=== PATIENT | male | born 1935 | race Caucasian/White ===

== ENCOUNTER 2018-12-03 13:50 | Emergency (ER) | payer OTHER ==
[~2018-12-03] VITALS: Ht 175.3 cm; Wt 81.7 kg
[~2018-12-03 13:50] MED LIST: CLOP75 PO; COLE5P PO; FAMO40 PO; Felodipine ER5 MG PO; GLIP2.5ER PO; GLIP5 PO; LISI5 PO; Lisinopril2.5 MG; METF500 PO; METF500C PO; METFORMIN; METO25 PO; METO25ER PO; NAPR550 PO; NITR.6SL SL; OMEP20ER PO; OXYACE5T PO; OXYB5 PO; PREVASTATIN; ROSU5 PO; TAMS.4ER PO; [UNRECOGNIZED DRUG - OTHER]
[2018-12-03] MEDS ORDERED: ASCO500 PO (15:35)
[2018-12-03] MEDS ORDERED: FINA5 PO (15:40)
[2018-12-03] MEDS ORDERED: SERT25 PO (15:41)
[2018-12-03] MEDS ORDERED: ASPI81CH PO (15:42)
[2018-12-03] MEDS ORDERED: Vitamin D400 UNI2 PO (15:42)
[2018-12-03] MEDS ORDERED: Hair, Skin & N1 EACH PO (15:42)
[2018-12-03] MEDS ORDERED: Coq-10100 MG PO (15:43)
== END 2018-12-03 16:46 ==
LOC: ER 13:50
DX: M51.36 Other intervertebral disc degeneration, lumbar region (principal); M43.9 Deforming dorsopathy, unspecified; G89.29 Other chronic pain; I10 Essential (primary) hypertension; E11.9 Type 2 diabetes mellitus without complications; Z79.899 Other long term (current) drug therapy; Z79.82 Long term (current) use of aspirin; Z79.01 Long term (current) use of anticoagulants; Z79.84 Long term (current) use of oral hypoglycemic drugs; Z86.73 Personal history of transient ischemic attack (TIA), and cerebral infarction without residual deficits; W19.XXXA Unspecified fall, initial encounter
CPT/HCPCS: 72100; 99283-25

== ENCOUNTER 2018-12-06 11:12 | Emergency (ER) | payer OTHER ==
[~2018-12-06] VITALS: Ht 175.3 cm; Wt 81.7 kg
[~2018-12-06 11:12] MED LIST changes: +ASCO500 PO; +ASPI81CH PO; +Coq-10100 MG PO; +FINA5 PO; +Hair, Skin & N1 EACH PO; +SERT25 PO; +Vitamin D400 UNI2 PO
== END 2018-12-06 15:11 | disposition home or self-care (01) ==
LOC: ER 11:12
DX: S32.029A Unspecified fracture of second lumbar vertebra, initial encounter for closed fracture (principal); I10 Essential (primary) hypertension; E11.9 Type 2 diabetes mellitus without complications; Z91.018 Allergy to other foods; Z88.8 Allergy status to other drugs, medicaments and biological substances; Z79.899 Other long term (current) drug therapy; Z79.01 Long term (current) use of anticoagulants; Z79.84 Long term (current) use of oral hypoglycemic drugs; Z79.82 Long term (current) use of aspirin; Z86.73 Personal history of transient ischemic attack (TIA), and cerebral infarction without residual deficits; W19.XXXA Unspecified fall, initial encounter
CPT/HCPCS: 99284

== ENCOUNTER 2019-10-06 07:07 | Emergency (ER) | payer OTHER ==
[~2019-10-06] VITALS: Ht 177.8 cm; Wt 79.4 kg
[2019-10-06 08:00] LABS: BASOPHILS ABSOLUTE AUTO 0.05 K/mm3 (0.00-0.23); BASOPHILS PERCENT AUTO 1 % (0-2); EOSINOPHILS ABSOLUTE AUTO 0.23 K/mm3 (0.00-0.68); EOSINOPHILS PERCENT AUTO 3 % (0-6); Hematocrit 36.5 % (37.0-53.0); Hemoglobin 11.8 g/dL (13.5-17.5); IMMATURE GRAN ABSOLUTE AUTO 0.03 K/mm3 (0.00-0.10); IMMATURE GRAN PERCENT AUTO 0 % (0-1); LYMPHOCYTES ABSOLUTE AUTO 2.29 K/mm3 (0.84-5.20); LYMPHOCYTES PERCENT AUTO 25 % (21-46); MONOCYTES ABSOLUTE AUTO 0.88 K/mm3 (0.16-1.47); MONOCYTES PERCENT AUTO 10 % (4-13); Mean Corpuscular HGB 28.6 pg (26.0-34.0); Mean Corpuscular HGB Conc 32.3 g/dL (31.5-36.5); Mean Corpuscular Volume 88 fL (80-100); Mean Platelet Volume 9.3 fL (9.1-12.4); NEUTROPHILS ABSOLUTE AUTO 5.58 K/mm3 (1.96-9.15); NEUTROPHILS PERCENT AUTO 62 % (41-73); Platelet Count 253 K/mm3 (150-400); RDW Coefficient Variation 14.2 % (11.7-14.2); RDW Standard Deviation 45.7 fL (35.1-46.3); Red Blood Cell Count 4.13 M/mm3 (4.30-5.90); White Blood Cell Count 9.06 K/mm3 (4.00-11.30)
[2019-10-06 08:19] LABS: Albumin, Blood 3.2 g/dL (3.4-5.0); Albumin/Globulin Ratio 0.8 (0.8-1.8); Bilirubin, Total 0.6 mg/dL (0.1-1.0); Creatinine, Blood 1.35 mg/dL (0.60-1.20); Globulin, Blood 4.2 g/dL (2.2-4.0); Potassium, Blood 4.1 mmol/L (3.5-5.5); Total Protein, Blood 7.4 g/dL (6.4-8.2)
== END 2019-10-06 09:05 | disposition home or self-care (01) ==
LOC: ER 07:07
PROVIDERS: Emergency Medicine
DX: M25.511 Pain in right shoulder (principal); R29.6 Repeated falls; E11.22 Type 2 diabetes mellitus with diabetic chronic kidney disease; I12.9 Hypertensive chronic kidney disease with stage 1 through stage 4 chronic kidney disease, or unspecified chronic kidney disease; N18.9 Chronic kidney disease, unspecified; W06.XXXA Fall from bed, initial encounter
CPT/HCPCS: 36415; 80053; 85025; 93005; 93010; 99284-25

== ENCOUNTER 2020-01-14 02:46 | Emergency (ER) | payer OTHER ==
[~2020-01-14] VITALS: Ht 175.3 cm; Wt 83.9 kg
[2020-01-14 05:02] LABS: Source, Urine Clean Catch
[2020-01-14 05:05] LABS: Bilirubin, Urine Neg (Neg); Blood, Urine 3+ (Neg); Glucose Qualitative, Urine Neg (Neg); Ketones, Urine Neg (Neg); Leukocyte Esterase, Urine 3+ (Neg); Nitrite, Urine Neg (Neg); Protein, Urine 2+ (Neg); Urobilinogen, Urine NORM (Normal)
[2020-01-14 05:21] LABS: Appearance, Urine Clear (Clear); Color, Urine Yellow (P-Yellow)
[2020-01-14 05:28] LABS: White Blood Cells, Urine TNTC /hpf (0-5)
[2020-01-14 05:29] LABS: Bacteria Many /hpf; Red Blood Cells, Urine 50-100 /hpf (0-2); Squamous Epithelial Cells Not Seen /hpf (Few)
[2020-01-14] MEDS ORDERED: Keflex500 MG PO (05:58)
== END 2020-01-14 08:10 | disposition home or self-care (01) ==
LOC: ER 02:46
PROVIDERS: Emergency Medicine
DX: N39.0 Urinary tract infection, site not specified (principal); Z88.8 Allergy status to other drugs, medicaments and biological substances; Z91.030 Bee allergy status; Z79.899 Other long term (current) drug therapy; Z79.84 Long term (current) use of oral hypoglycemic drugs; Z79.82 Long term (current) use of aspirin; I12.9 Hypertensive chronic kidney disease with stage 1 through stage 4 chronic kidney disease, or unspecified chronic kidney disease; N18.9 Chronic kidney disease, unspecified; E78.5 Hyperlipidemia, unspecified; E11.22 Type 2 diabetes mellitus with diabetic chronic kidney disease; Z86.73 Personal history of transient ischemic attack (TIA), and cerebral infarction without residual deficits
CPT/HCPCS: 51798; 81001; 87077; 87086; 87186; 99283-25; A9270-GY

== ENCOUNTER → 2020-05-04 | Outpatient (CLI) | payer OTHER ==
[~2020-05-04] MED LIST changes: +Keflex500 MG PO
[2020-05-04 10:41] LABS: Bilirubin, Urine Neg (Neg); Blood, Urine Neg (Neg); Glucose Qualitative, Urine Neg (Neg); Ketones, Urine Neg (Neg); Leukocyte Esterase, Urine 3+ (Neg); Nitrite, Urine Neg (Neg); Protein, Urine Neg (Neg); Urobilinogen, Urine NORM (Normal)
[2020-05-04 10:50] LABS: Appearance, Urine Hazy (Clear); Color, Urine Pale Yellow (P-Yellow)
[2020-05-04 10:51] LABS: White Blood Cells, Urine 25-50 /hpf (0-5)
[2020-05-04 10:52] LABS: Bacteria Many /hpf; Red Blood Cells, Urine 0-2 /hpf (0-2); Squamous Epithelial Cells Rare /hpf (Few); Triple Phosphate Crystals Mod /hpf
[2020-05-04 10:53] LABS: Amorphous Light (0-Heavy)
== END | disposition home or self-care (01) ==
LOC: LAB 08:45 → LAB SHORT 08:45 → LAB FUT 05-03 14:10
PROVIDERS: Urology
DX: R39.14 Feeling of incomplete bladder emptying (principal)
CPT/HCPCS: 81001; 87077; 87086; 87186

== ENCOUNTER 2020-07-23 14:34 | Emergency (ER) | payer OTHER ==
[~2020-07-23] VITALS: Ht 175.3 cm; Wt 83.9 kg
[~2020-07-23 14:34] MED LIST changes: +CEFP200 PO
[2020-07-23 14:55] LABS: Source, Urine Clean Catch
[2020-07-23 15:26] LABS: Bilirubin, Urine Neg (Neg); Blood, Urine 5+ (Neg); Glucose Qualitative, Urine Neg (Neg); Ketones, Urine 1+ (Neg); Leukocyte Esterase, Urine 3+ (Neg); Nitrite, Urine Pos (Neg); Protein, Urine 4+ (Neg); Urobilinogen, Urine NORM (Normal)
[2020-07-23 15:39] LABS: Color, Urine Yellow (P-Yellow)
[2020-07-23 15:40] LABS: Appearance, Urine Cloudy (Clear); Bacteria Many /hpf; Red Blood Cells, Urine TNTC /hpf (0-2); Squamous Epithelial Cells Rare /hpf (Few); White Blood Cells, Urine TNTC /hpf (0-5)
[2020-07-23] MEDS ORDERED: CEPH500 PO (16:00)
[2020-07-23] MEDS ORDERED: Magnesium Citr296 ML PO (16:00)
== END 2020-07-23 16:35 | disposition home or self-care (01) ==
LOC: ER 14:34
PROVIDERS: Emergency Medicine
DX: K60.2 Anal fissure, unspecified (principal); N39.0 Urinary tract infection, site not specified; I12.9 Hypertensive chronic kidney disease with stage 1 through stage 4 chronic kidney disease, or unspecified chronic kidney disease; N18.9 Chronic kidney disease, unspecified; E11.22 Type 2 diabetes mellitus with diabetic chronic kidney disease; E78.5 Hyperlipidemia, unspecified; I25.810 Atherosclerosis of coronary artery bypass graft(s) without angina pectoris; Z91.013 Allergy to seafood; Z88.8 Allergy status to other drugs, medicaments and biological substances; Z79.02 Long term (current) use of antithrombotics/antiplatelets; Z79.84 Long term (current) use of oral hypoglycemic drugs; Z79.82 Long term (current) use of aspirin; Z79.899 Other long term (current) drug therapy; Z86.73 Personal history of transient ischemic attack (TIA), and cerebral infarction without residual deficits; Z95.1 Presence of aortocoronary bypass graft
CPT/HCPCS: 81001; 87077; 87086; 87186; 99283

== ENCOUNTER 2021-07-28 15:29 | Emergency (ER) | payer OTHER ==
[~2021-07-28] VITALS: Ht 175.3 cm; Wt 83.9 kg
[~2021-07-28 15:29] MED LIST changes: +CEPH500 PO; +Magnesium Citr296 ML PO
[2021-07-28 16:07] LABS: BASOPHILS ABSOLUTE AUTO 0.08 K/mm3 (0.00-0.23); BASOPHILS PERCENT AUTO 1 % (0-2); EOSINOPHILS ABSOLUTE AUTO 0.17 K/mm3 (0.00-0.68); EOSINOPHILS PERCENT AUTO 2 % (0-6); Hematocrit 36.9 % (37.0-53.0); Hemoglobin 11.9 g/dL (13.5-17.5); IMMATURE GRAN ABSOLUTE AUTO 0.02 K/mm3 (0.00-0.10); IMMATURE GRAN PERCENT AUTO 0 % (0-1); LYMPHOCYTES ABSOLUTE AUTO 1.93 K/mm3 (0.84-5.20); LYMPHOCYTES PERCENT AUTO 21 % (21-46); MONOCYTES ABSOLUTE AUTO 0.76 K/mm3 (0.16-1.47); MONOCYTES PERCENT AUTO 8 % (4-13); Mean Corpuscular HGB 29.2 pg (26.0-34.0); Mean Corpuscular HGB Conc 32.2 g/dL (31.5-36.5); Mean Corpuscular Volume 91 fL (80-100); Mean Platelet Volume 9.5 fL (9.1-12.4); NEUTROPHILS ABSOLUTE AUTO 6.11 K/mm3 (1.96-9.15); NEUTROPHILS PERCENT AUTO 67 % (41-73); NRBC ABSOLUTE 0.02 K/mm3 (0.00-0.02); NRBC Auto 0.2 /100 WBC (0.0-0.2); Platelet Count 255 K/mm3 (150-400); RDW Coefficient Variation 14.5 % (11.7-14.2); RDW Standard Deviation 48.6 fL (35.1-46.3); Red Blood Cell Count 4.07 M/mm3 (4.30-5.90); White Blood Cell Count 9.07 K/mm3 (4.00-11.30)
[2021-07-28 16:27] LABS: Albumin, Blood 3.4 g/dL (3.4-5.0); Albumin/Globulin Ratio 0.8 (0.8-1.8); Bilirubin, Total 0.5 mg/dL (0.1-1.0); Bun/Creatinine Ratio 20.9 (12.0-20.0); Calcium, Blood 9.1 mg/dL (8.5-10.1); Creatinine, Blood 1.39 mg/dL (0.60-1.20); Globulin, Blood 4.3 g/dL (2.2-4.0); Potassium, Blood 4.9 mmol/L (3.5-5.5); Total Protein, Blood 7.7 g/dL (6.4-8.2)
[2021-07-28] MEDS ORDERED: GLYCERIN1 EAC3 PR (20:33)
== END 2021-07-28 20:57 | disposition home or self-care (01) ==
LOC: ER 15:29
PROVIDERS: Physician Assistant
DX: K59.00 Constipation, unspecified (principal); Z91.013 Allergy to seafood; Z88.8 Allergy status to other drugs, medicaments and biological substances; Z79.899 Other long term (current) drug therapy; Z79.82 Long term (current) use of aspirin; Z79.84 Long term (current) use of oral hypoglycemic drugs; I12.9 Hypertensive chronic kidney disease with stage 1 through stage 4 chronic kidney disease, or unspecified chronic kidney disease; E11.22 Type 2 diabetes mellitus with diabetic chronic kidney disease; N18.9 Chronic kidney disease, unspecified; E78.5 Hyperlipidemia, unspecified; I25.10 Atherosclerotic heart disease of native coronary artery without angina pectoris; Z86.73 Personal history of transient ischemic attack (TIA), and cerebral infarction without residual deficits
CPT/HCPCS: 36415; 74176; 80053; 85025; 99284-25; A9270

== ENCOUNTER 2021-11-04 12:11 | Emergency (ER) | payer OTHER ==
[~2021-11-04] VITALS: Ht 175.3 cm; Wt 83.9 kg
[~2021-11-04 12:11] MED LIST changes: +ACET325; +GLYCERIN1 EAC3 PR
[2021-11-04] MEDS ORDERED: MAGCIT300 PO (15:54)
== END 2021-11-04 16:44 | disposition home or self-care (01) ==
LOC: ER 12:11
DX: K59.00 Constipation, unspecified (principal); Z88.8 Allergy status to other drugs, medicaments and biological substances; Z91.013 Allergy to seafood; Z79.899 Other long term (current) drug therapy; Z79.84 Long term (current) use of oral hypoglycemic drugs; I10 Essential (primary) hypertension; E11.9 Type 2 diabetes mellitus without complications; Z87.891 Personal history of nicotine dependence
CPT/HCPCS: 74018; 99283-25; A9270

== ENCOUNTER 2022-03-18 23:45 | Inpatient (IN) | payer OTHER ==
[~2022-03-18] VITALS: Ht 175.3 cm; Wt 82.5 kg
[~2022-03-18 23:45] MED LIST changes: -ACET325; +ACET325 PO; -Lisinopril2.5 MG; +Lisinopril2.5 MG PO; +MAGCIT300 PO
[2022-03-18 23:56] LABS: Source, Urine Foley catheter
[2022-03-19 00:03] LABS: Bilirubin, Urine Neg (Neg); Blood, Urine 4+ (Neg); Glucose Qualitative, Urine Neg (Neg); Ketones, Urine Neg (Neg); Leukocyte Esterase, Urine 3+ (Neg); Nitrite, Urine Pos (Neg); Protein, Urine 2+ (Neg); Urobilinogen, Urine NORM (Normal)
[2022-03-19 00:22] LABS: Appearance, Urine Cloudy (Clear); Bacteria Many /hpf; Color, Urine Yellow (P-Yellow); Squamous Epithelial Cells Rare /hpf (Few); White Blood Cells, Urine 50-100 /hpf (0-5)
[2022-03-19 00:26] LABS: BASOPHILS ABSOLUTE AUTO 0.06 K/mm3 (0.00-0.23); BASOPHILS PERCENT AUTO 1 % (0-2); EOSINOPHILS ABSOLUTE AUTO 0.32 K/mm3 (0.00-0.68); EOSINOPHILS PERCENT AUTO 3 % (0-6); Hematocrit 33.9 % (37.0-53.0); Hemoglobin 10.9 g/dL (13.5-17.5); IMMATURE GRAN ABSOLUTE AUTO 0.03 K/mm3 (0.00-0.10); IMMATURE GRAN PERCENT AUTO 0 % (0-1); LYMPHOCYTES ABSOLUTE AUTO 1.85 K/mm3 (0.84-5.20); LYMPHOCYTES PERCENT AUTO 15 % (21-46); MONOCYTES ABSOLUTE AUTO 1.17 K/mm3 (0.16-1.47); MONOCYTES PERCENT AUTO 9 % (4-13); Mean Corpuscular HGB 28.8 pg (26.0-34.0); Mean Corpuscular HGB Conc 32.2 g/dL (31.5-36.5); Mean Corpuscular Volume 89 fL (80-100); Mean Platelet Volume 9.2 fL (9.1-12.4); NEUTROPHILS ABSOLUTE AUTO 9.03 K/mm3 (1.96-9.15); NEUTROPHILS PERCENT AUTO 73 % (41-73); Platelet Count 192 K/mm3 (150-400); RDW Coefficient Variation 16.3 % (11.7-14.2); RDW Standard Deviation 54.1 fL (35.1-46.3); Red Blood Cell Count 3.79 M/mm3 (4.30-5.90); White Blood Cell Count 12.46 K/mm3 (4.00-11.30)
[2022-03-19 06:57] LABS: Albumin/Globulin Ratio 0.8 (0.8-1.8); Bilirubin, Total 0.4 mg/dL (0.1-1.0); Bun/Creatinine Ratio 28.7 (12.0-20.0); Calcium, Blood 8.8 mg/dL (8.5-10.1); Creatinine, Blood 1.43 mg/dL (0.60-1.20); Globulin, Blood 3.9 g/dL (2.2-4.0); Potassium, Blood 4.4 mmol/L (3.5-5.5); Total Protein, Blood 6.9 g/dL (6.4-8.2)
[2022-03-19 08:40] LABS: BASOPHILS ABSOLUTE AUTO 0.06 K/mm3 (0.00-0.23); BASOPHILS PERCENT AUTO 1 % (0-2); EOSINOPHILS ABSOLUTE AUTO 0.32 K/mm3 (0.00-0.68); EOSINOPHILS PERCENT AUTO 3 % (0-6); Hematocrit 33.5 % (37.0-53.0); Hemoglobin 10.6 g/dL (13.5-17.5); IMMATURE GRAN ABSOLUTE AUTO 0.04 K/mm3 (0.00-0.10); IMMATURE GRAN PERCENT AUTO 0 % (0-1); LYMPHOCYTES ABSOLUTE AUTO 2.05 K/mm3 (0.84-5.20); LYMPHOCYTES PERCENT AUTO 18 % (21-46); MONOCYTES PERCENT AUTO 11 % (4-13); Mean Corpuscular HGB 28.8 pg (26.0-34.0); Mean Corpuscular HGB Conc 31.6 g/dL (31.5-36.5); Mean Corpuscular Volume 91 fL (80-100); Mean Platelet Volume 9.1 fL (9.1-12.4); NEUTROPHILS ABSOLUTE AUTO 7.78 K/mm3 (1.96-9.15); NEUTROPHILS PERCENT AUTO 67 % (41-73); Platelet Count 185 K/mm3 (150-400); RDW Coefficient Variation 16.3 % (11.7-14.2); RDW Standard Deviation 54.9 fL (35.1-46.3); Red Blood Cell Count 3.68 M/mm3 (4.30-5.90); White Blood Cell Count 11.55 K/mm3 (4.00-11.30)
[2022-03-19 09:05] LABS: Albumin, Blood 2.7 g/dL (3.4-5.0); Albumin/Globulin Ratio 0.7 (0.8-1.8); Bilirubin, Total 0.3 mg/dL (0.1-1.0); Bun/Creatinine Ratio 27.1 (12.0-20.0); Calcium, Blood 8.1 mg/dL (8.5-10.1); Creatinine, Blood 1.29 mg/dL (0.60-1.20); Potassium, Blood 4.4 mmol/L (3.5-5.5); Total Protein, Blood 6.7 g/dL (6.4-8.2)
[2022-03-19] MEDS ORDERED: SERT100 PO (10:44)
[2022-03-19] MEDS ORDERED: METO50ER PO (10:44)
[2022-03-19] MEDS ORDERED: ROSU10TA PO (10:45)
[2022-03-19] MEDS ORDERED: SENN187 PO ×2 (10:45→23:03)
[2022-03-19] MEDS ORDERED: DOCU100 PO (10:46)
[2022-03-19] MEDS ORDERED: ALENDRONATE SOD35 M6 PO (10:47)
--- NOTE | 2022-03-19 18:34 | NUR ---
SHIFT SUMMARY PT A/O X2-3. PT SEEMS TO HAVE GOTTEN INCREASINGLY CONFUSED T/O THE SHIFT. PT UNSURE OF WHERE HE IS BUT PLEASANT AND COOPERATIVE WITH CARE. 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 HE REPORTS PAIN IN HIS R SIDE AT BASELINE. MEDICATION LIST OBTAINED FROM CAREGIVER AND UPDATED. VSS. WILL REPORT TO NESS RN.
[2022-03-19] MEDS ORDERED: ALPR.25 PO (22:49)
[2022-03-19] MEDS ORDERED: CALCIUM CARBON650 MG PO (22:49)
[2022-03-19] MEDS ORDERED: CARBLEV25 SL (22:50)
[2022-03-19] MEDS ORDERED: CLIN1TS TOP (22:51)
[2022-03-19] MEDS ORDERED: CLOBETASOL EMOL15 G1 TOP (22:52)
[2022-03-19] MEDS ORDERED: VOLTAREN ARTHRI20 GM TOP (22:53)
[2022-03-19] MEDS ORDERED: FAMO20 PO (22:54)
[2022-03-19] MEDS ORDERED: GUAI600T33 PO (22:57)
[2022-03-19] MEDS ORDERED: DULCOLAX400 MG/5 M PO (22:59)
[2022-03-19] MEDS ORDERED: NYAMYC15 G1 TOP (23:00)
[2022-03-19] MEDS ORDERED: MIRALAX17 GM PO (23:01)
[2022-03-19] MEDS ORDERED: SODIUM CHLORIDE10 M1 IR (23:05)
[2022-03-19] MEDS ORDERED: SOLI5 PO (23:06)
[2022-03-19] MEDS ORDERED: THERA-GESIC TOP (23:07)
[2022-03-19] MEDS ORDERED: [UNRECOGNIZED DRUG - OTHER] PO (23:08)
[2022-03-19] MEDS ORDERED: ZINC OXIDE57 GM TOP (23:09)
--- NOTE | 2022-03-20 01:14 | NUR ---
RECEIVED REPORT AND ASSUMED CARE OF PT. HE IS LYING QUIETLY IN BED WATCHING TV.
[2022-03-20 04:50] LABS: Hematocrit 33.1 % (37.0-53.0); Hemoglobin 10.7 g/dL (13.5-17.5); Mean Corpuscular HGB Conc 32.3 g/dL (31.5-36.5); Mean Corpuscular Volume 90 fL (80-100); Mean Platelet Volume 9.8 fL (9.1-12.4); Platelet Count 200 K/mm3 (150-400); RDW Coefficient Variation 15.9 % (11.7-14.2); Red Blood Cell Count 3.69 M/mm3 (4.30-5.90); White Blood Cell Count 10.19 K/mm3 (4.00-11.30)
[2022-03-20 05:15] LABS: Bun/Creatinine Ratio 22.3 (12.0-20.0); Calcium, Blood 8.6 mg/dL (8.5-10.1); Creatinine, Blood 1.21 mg/dL (0.60-1.20); Potassium, Blood 4.1 mmol/L (3.5-5.5)
--- NOTE | 2022-03-20 06:17 | NUR ---
SHIFT SUMMARY: МАРИНА HAS RESTED INTERMITTENTLY THIS SHIFT. VSS, NO ACUTE EVENTS OVERNIGHT. HE DID COMPLAING OF RIGHT SHOULDER PAIN WHICH HE STATES IS INTERMITTENT AND EXACERBATED WITH MOVEMENT. HE REPORTS ADEQUATE PAIN CONTROL WITH 650 MG OF APAP. HE HAS ALLOWED REPOSITIONING PART OF THE TIME IT HAS BEEN OFFERED. KNIGHT PATENT. HE IS LYING IN BED WITH HIS EYES CLOSED, RESPIRATIONS EVEN AND UNLABORED, CALL LIGHT IN REACH. WCTM UNTIL REPORT IS GIVEN TO DAY SHIFT RN.
--- NOTE | 2022-03-20 17:42 | NUR ---
SHIFT SUMMARY PT A/O X2/3; PLEASANT AND COOPERATIVE WITH CARE. 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 PT REPORTS THAT HIS BLADDER PAIN HAS IMPROVED QUITE A BIT. PT TO STAY FOR AT LEAST ONE MORE DAY FOR IV ANTIBIOTICS. R SIDED WEAKNESS AND PAIN FROM A PAST STROKE. PT TO BE TURNED Q2 DUE TO LIMITED MOBILITY IN BED. PT REPORTS USING A WHEELCHAIR AND SOMETIMES WALKER AT BASELINE. PT BEDBOUND SINCE ADMISSION. VSS. WILL REPORT TO NESS HAILE.
--- NOTE | 2022-03-21 04:04 | NUR ---
Patient with VSS on RA overnight. Skin inspection reveals healing scabs from old pressure injuries on coccyx and buttocks. Patient TUrned Q2 hr with heel protectors in place. Patient alert and conversive throughout shift. Archibald catheter with sufficient clear yellow output. patient continuing to recieve IV antibiotics overnight.
--- NOTE | 2022-03-21 16:49 | NUR ---
SHIFT SUMMARY PATIENT IS ALERT AND ORIENTED X3, CAN BE FORGETFUL AT TIMES. PATIENT IS COOPERATIVE WITH CARE. PATIENT HAS CHRONIC PAIN AND WEAKNESS ON THE RIGHT SIDE. PATIENT WAS OFFERED PAIN MEDICATION. THE PATIENT REFUSED THEY SAID IT DOES NOT SEEM TO HELP. PATIENT HAD ABX X1 TODAY. PATIENT HAS A KNIGHT PRESENT PATENT AND DRAINING YELLOW URINE TO GRAVITY. PATIENT HAS BEEN ON BEDREST TODAY. PATIENT STATES THEY HAVE A WALKER AND WHEELCHAIR AT HOME. PICTURE UPDATED IN CHART. BED IN LOWEST POSITION, AND CALLIGHT WITHIN REACH.
[2022-03-22 04:37] LABS: Albumin, Blood 2.7 g/dL (3.4-5.0); Anion Gap 9 mmol/L (6-16); Blood Urea Nitrogen 29 mg/dL (8-24); CO2, Blood 26 mmol/L (21-32); Calcium, Blood 8.6 mg/dL (8.5-10.1); Chloride, Blood 101 mmol/L (98-108); Creatinine, Blood 1.26 mg/dL (0.60-1.20); Glomerular Filtration Rate 56 (60-); Glucose, Blood 169 mg/dL (70-99); Phosphorus, Blood 3.1 mg/dL (2.5-4.9); Potassium, Blood 4.1 mmol/L (3.5-5.5); Sodium, Blood 136 mmol/L (136-145)
--- NOTE | 2022-03-22 05:10 | NUR ---
patient with VSS on RA overnight. patient resistant to skin inspection and repositioning throughout the night. Placed mepilex on old buttocks scabs. Heel protectors from home in place. patient turned as much as he would tolerate overnight. Patient seems more confused overnight tonight then last night. Archibald patent with clear yellow urine. Continuing antibiotics for Urosepsis. Patient hopeful to return back to [facility] at [place].
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
[2022-03-23] MEDS ORDERED: VISBIOME 112.51 EACH PO (11:47)
[2022-03-23] MEDS ORDERED: Vitamin D1000 UNI1 PO (11:48)
[2022-03-23] MEDS ORDERED: AUGMENTIN250 MG/5 M PO (11:48)
--- NOTE | 2022-03-23 17:34 | NUR ---
DISCHARGE: PT EVALUATED AND CLEARED FOR DISCHARGE BY DR W[place]. PT CAREGIVER NOTIFIED BY CHARGE NURSE. PT PROVIDED WITH PAPERWORK AND INSTRUCTIONS, VERBALIZES UNDERSTANDING, DENIES QUESTIONS. W/C TRANSPORT ARRIVES FOR PT. PT ASSISTED TO W/C FROM CHAIR USING GAIT BELT AND FWW. IV ACCESS HAS BEEN DC'd WNL. PT DEPARTS IN NAD.
== END 2022-03-23 17:34 | disposition home or self-care (01) | DRG 698 ==
LOC: ER 23:45 → MEDS 03-19 01:55
PROVIDERS: Family Medicine; Internal Medicine; Physician Assistant; Student in an Organized Health Care Education/Training Program; ADMIT Internal Medicine
DX: T83.511A Infection and inflammatory reaction due to indwelling urethral catheter, initial encounter (principal); R65.20 Severe sepsis without septic shock; G92.8 Other toxic encephalopathy; A41.81 Sepsis due to Enterococcus; N17.9 Acute kidney failure, unspecified; N39.0 Urinary tract infection, site not specified; G20 Parkinson's disease; I25.10 Atherosclerotic heart disease of native coronary artery without angina pectoris; F41.9 Anxiety disorder, unspecified; N13.9 Obstructive and reflux uropathy, unspecified; E11.22 Type 2 diabetes mellitus with diabetic chronic kidney disease; N18.30 Chronic kidney disease, stage 3 unspecified; I12.9 Hypertensive chronic kidney disease with stage 1 through stage 4 chronic kidney disease, or unspecified chronic kidney disease; K59.09 Other constipation; R13.10 Dysphagia, unspecified; E78.5 Hyperlipidemia, unspecified; N40.1 Benign prostatic hyperplasia with lower urinary tract symptoms; F32.A Depression, unspecified; Z95.1 Presence of aortocoronary bypass graft; Z87.19 Personal history of other diseases of the digestive system; Z98.890 Other specified postprocedural states; Z79.02 Long term (current) use of antithrombotics/antiplatelets; Z79.84 Long term (current) use of oral hypoglycemic drugs; Z79.811 Long term (current) use of aromatase inhibitors; Z79.899 Other long term (current) drug therapy; Z91.013 Allergy to seafood; Z88.8 Allergy status to other drugs, medicaments and biological substances; K21.9 Gastro-esophageal reflux disease without esophagitis; F19.10 Other psychoactive substance abuse, uncomplicated
CPT/HCPCS: 36415; 51798; 80048; 80053; 80069; 81001; 82947; 83605; 85025; 85027; 87040; 87086; 96374; 99284-25; A9270; J0295; J0696; J1650; J7030; J7040

== ENCOUNTER 2022-04-29 17:28 | Emergency (ER) | payer OTHER ==
[~2022-04-29] VITALS: Ht 175.3 cm; Wt 83.9 kg
[~2022-04-29 17:28] MED LIST changes: +ALENDRONATE SOD35 M6 PO; +ALPR.25 PO; +AUGMENTIN250 MG/5 M PO; +CALCIUM CARBON650 MG PO; +CARBLEV25 SL; +CLIN1TS TOP; +CLOBETASOL EMOL15 G1 TOP; +DOCU100 PO; +DULCOLAX400 MG/5 M PO; +FAMO20 PO; +GUAI600T33 PO; +METO50ER PO; +MIRALAX17 GM PO; +NYAMYC15 G1 TOP; +ROSU10TA PO; +SENN187 PO; +SERT100 PO; +SODIUM CHLORIDE10 M1 IR; +SOLI5 PO; +THERA-GESIC TOP; +VISBIOME 112.51 EACH PO; +VOLTAREN ARTHRI20 GM TOP; +Vitamin D1000 UNI1 PO; +ZINC OXIDE57 GM TOP; +[UNRECOGNIZED DRUG - OTHER] PO
[2022-04-29 18:05] LABS: BASOPHILS ABSOLUTE AUTO 0.06 K/mm3 (0.00-0.23); BASOPHILS PERCENT AUTO 1 % (0-2); EOSINOPHILS ABSOLUTE AUTO 0.28 K/mm3 (0.00-0.68); EOSINOPHILS PERCENT AUTO 3 % (0-6); Hematocrit 35.8 % (37.0-53.0); Hemoglobin 11.9 g/dL (13.5-17.5); IMMATURE GRAN ABSOLUTE AUTO 0.03 K/mm3 (0.00-0.10); IMMATURE GRAN PERCENT AUTO 0 % (0-1); LYMPHOCYTES ABSOLUTE AUTO 2.11 K/mm3 (0.84-5.20); LYMPHOCYTES PERCENT AUTO 20 % (21-46); MONOCYTES ABSOLUTE AUTO 0.86 K/mm3 (0.16-1.47); MONOCYTES PERCENT AUTO 8 % (4-13); Mean Corpuscular HGB 29.4 pg (26.0-34.0); Mean Corpuscular HGB Conc 33.2 g/dL (31.5-36.5); Mean Corpuscular Volume 88 fL (80-100); Mean Platelet Volume 9.2 fL (9.1-12.4); NEUTROPHILS ABSOLUTE AUTO 7.02 K/mm3 (1.96-9.15); NEUTROPHILS PERCENT AUTO 68 % (41-73); Platelet Count 267 K/mm3 (150-400); RDW Standard Deviation 48.8 fL (35.1-46.3); Red Blood Cell Count 4.05 M/mm3 (4.30-5.90); White Blood Cell Count 10.36 K/mm3 (4.00-11.30)
[2022-04-29 18:24] LABS: Albumin, Blood 3.1 g/dL (3.4-5.0); Albumin/Globulin Ratio 0.7 (0.8-1.8); Bilirubin, Total 0.2 mg/dL (0.1-1.0); Bun/Creatinine Ratio 25.5 (12.0-20.0); Calcium, Blood 8.8 mg/dL (8.5-10.1); Creatinine, Blood 1.37 mg/dL (0.60-1.20); Globulin, Blood 4.5 g/dL (2.2-4.0); Potassium, Blood 4.4 mmol/L (3.5-5.5); Total Protein, Blood 7.6 g/dL (6.4-8.2)
[2022-04-29 18:52] LABS: Source, Urine Foley catheter
[2022-04-29] MEDS ORDERED: ALEN70 PO (19:22)
[2022-04-29] MEDS ORDERED: CARBIDOPA-LEVO1 EA15 PO (19:24)
[2022-04-29] MEDS ORDERED: DICLOFENAC SOD100 GM TP (19:24)
[2022-04-29] MEDS ORDERED: CALCIUM CARBON650 MG PO (19:24)
[2022-04-29] MEDS ORDERED: FAMO20 PO (19:25)
[2022-04-29 19:26] LABS: Appearance, Urine Clear (Clear); Bilirubin, Urine Neg (Neg); Blood, Urine 3+ (Neg); Color, Urine Yellow (P-Yellow); Glucose Qualitative, Urine 3+ (Neg); Ketones, Urine Neg (Neg); Leukocyte Esterase, Urine 3+ (Neg); Nitrite, Urine Neg (Neg); Protein, Urine 3+ (Neg); Specific Gravity, Urine 1.015 (1.003-1.022); Urobilinogen, Urine NORM (Normal)
[2022-04-29] MEDS ORDERED: GUAI600T33 PO (19:26)
[2022-04-29] MEDS ORDERED: CITRATE OF MAG296 M1 PO (19:28)
[2022-04-29] MEDS ORDERED: NITR100CA PO (19:29)
[2022-04-29] MEDS ORDERED: NYSTRIT TOP (19:29)
[2022-04-29] MEDS ORDERED: METSALMENC (19:29)
[2022-04-29] MEDS ORDERED: SERT100 PO (19:29)
[2022-04-29 19:45] LABS: White Blood Cells, Urine 25-50 /hpf (0-5)
[2022-04-29 19:46] LABS: Bacteria Many /hpf; Renal Epithelial Few /hpf (0-Rare); Squamous Epithelial Cells Not Seen /hpf (Few)
[2022-04-29] MEDS ORDERED: CEFP200 PO (20:38)
== END 2022-04-29 21:19 | disposition home or self-care (01) ==
LOC: ER 17:28
PROVIDERS: Emergency Medicine
DX: N39.0 Urinary tract infection, site not specified (principal); S70.01XA Contusion of right hip, initial encounter; I12.9 Hypertensive chronic kidney disease with stage 1 through stage 4 chronic kidney disease, or unspecified chronic kidney disease; N18.30 Chronic kidney disease, stage 3 unspecified; E11.22 Type 2 diabetes mellitus with diabetic chronic kidney disease; W19.XXXA Unspecified fall, initial encounter; Z95.1 Presence of aortocoronary bypass graft; Z86.73 Personal history of transient ischemic attack (TIA), and cerebral infarction without residual deficits; Z96.0 Presence of urogenital implants
CPT/HCPCS: 36415; 51702; 73502; 80053; 81001; 85025; J0696; J7030

== ENCOUNTER 2022-05-01 23:20 | Emergency (ER) | payer OTHER ==
[~2022-05-01] VITALS: Ht 175.3 cm; Wt 81.7 kg
[~2022-05-01 23:20] MED LIST changes: +ALEN70 PO; +CARBIDOPA-LEVO1 EA15 PO; +CITRATE OF MAG296 M1 PO; +DICLOFENAC SOD100 GM TP; +METSALMENC; +NITR100CA PO; +NYSTRIT TOP
[2022-05-02] MEDS ORDERED: DOC250 PO (00:28)
[2022-05-02] MEDS ORDERED: BISA10S PR (00:28)
== END 2022-05-02 01:56 | disposition home or self-care (01) ==
LOC: ER 23:20
DX: K56.41 Fecal impaction (principal); I12.9 Hypertensive chronic kidney disease with stage 1 through stage 4 chronic kidney disease, or unspecified chronic kidney disease; E11.22 Type 2 diabetes mellitus with diabetic chronic kidney disease; N18.9 Chronic kidney disease, unspecified; Z95.1 Presence of aortocoronary bypass graft; Z96.0 Presence of urogenital implants; Z79.02 Long term (current) use of antithrombotics/antiplatelets; Z79.899 Other long term (current) drug therapy; Z79.84 Long term (current) use of oral hypoglycemic drugs; Z88.8 Allergy status to other drugs, medicaments and biological substances; Z91.013 Allergy to seafood
CPT/HCPCS: 51798; 74018; 99283-25; A9270

== ENCOUNTER 2022-06-28 02:25 | Emergency (ER) | payer OTHER ==
[~2022-06-28] VITALS: Ht 175.3 cm; Wt 81.7 kg
[~2022-06-28 02:25] MED LIST changes: +BISA10S PR; +DOC250 PO
== END 2022-06-28 09:57 | disposition home or self-care (01) ==
LOC: ER 02:25
DX: K59.00 Constipation, unspecified (principal); I12.9 Hypertensive chronic kidney disease with stage 1 through stage 4 chronic kidney disease, or unspecified chronic kidney disease; N18.9 Chronic kidney disease, unspecified; E11.22 Type 2 diabetes mellitus with diabetic chronic kidney disease; E78.5 Hyperlipidemia, unspecified; Z87.891 Personal history of nicotine dependence; Z95.1 Presence of aortocoronary bypass graft; Z91.013 Allergy to seafood; Z88.8 Allergy status to other drugs, medicaments and biological substances; Z79.899 Other long term (current) drug therapy; Z79.4 Long term (current) use of insulin; Z86.73 Personal history of transient ischemic attack (TIA), and cerebral infarction without residual deficits
CPT/HCPCS: 74019

== ENCOUNTER 2022-08-08 15:11 | Emergency (ER) | payer OTHER ==
[~2022-08-08] VITALS: Ht 175.3 cm; Wt 83.9 kg
[~2022-08-08 15:11] MED LIST changes: -ACET325 PO; +ACET500 PO; +FELODIPINE ER2.5 M1 PO; -Felodipine ER5 MG PO; -METSALMENC; +METSALMENC TOP
[2022-08-08 17:45] LABS: Source, Urine Foley catheter
[2022-08-08 18:02] LABS: Appearance, Urine Hazy (Clear); Bilirubin, Urine Neg (Neg); Blood, Urine 2+ (Neg); Color, Urine Yellow (P-Yellow); Glucose Qualitative, Urine Neg (Neg); Ketones, Urine Neg (Neg); Leukocyte Esterase, Urine 3+ (Neg); Nitrite, Urine Pos (Neg); Protein, Urine 1+ (Neg); Urobilinogen, Urine NORM (Normal)
[2022-08-08 18:15] LABS: Red Blood Cells, Urine 0-2 /hpf (0-2)
[2022-08-08 18:16] LABS: Amorphous Mod (0-Heavy); Bacteria Many /hpf; Squamous Epithelial Cells Rare /hpf (Few); Triple Phosphate Crystals Many /hpf
[2022-08-08] MEDS ORDERED: CIPR500 PO (19:27)
== END 2022-08-08 19:30 | disposition home or self-care (01) ==
LOC: ER 15:11
PROVIDERS: Student in an Organized Health Care Education/Training Program
DX: T83.098A Other mechanical complication of other urinary catheter, initial encounter (principal); N39.0 Urinary tract infection, site not specified; N41.9 Inflammatory disease of prostate, unspecified; I10 Essential (primary) hypertension; E11.9 Type 2 diabetes mellitus without complications; I25.2 Old myocardial infarction; Z91.013 Allergy to seafood; Z88.8 Allergy status to other drugs, medicaments and biological substances; Z79.899 Other long term (current) drug therapy; Z79.02 Long term (current) use of antithrombotics/antiplatelets; Z79.84 Long term (current) use of oral hypoglycemic drugs; Z95.1 Presence of aortocoronary bypass graft; Z87.891 Personal history of nicotine dependence
CPT/HCPCS: 51700; 51798; 81001; 87077; 87086; 87186; 99283-25; A9270

== ENCOUNTER 2022-08-10 00:42 | Inpatient (IN) | payer OTHER ==
[~2022-08-10] VITALS: Ht 172.7 cm; Wt 69.4 kg
[~2022-08-10 00:42] MED LIST changes: +CIPR500 PO
[2022-08-10 01:57] LABS: BASOPHILS ABSOLUTE AUTO 0.07 K/mm3 (0.00-0.23); BASOPHILS PERCENT AUTO 0 % (0-2); EOSINOPHILS ABSOLUTE AUTO 0.07 K/mm3 (0.00-0.68); EOSINOPHILS PERCENT AUTO 0 % (0-6); Hematocrit 37.4 % (37.0-53.0); Hemoglobin 12.3 g/dL (13.5-17.5); IMMATURE GRAN ABSOLUTE AUTO 0.14 K/mm3 (0.00-0.10); IMMATURE GRAN PERCENT AUTO 1 % (0-1); LYMPHOCYTES ABSOLUTE AUTO 1.81 K/mm3 (0.84-5.20); LYMPHOCYTES PERCENT AUTO 10 % (21-46); MONOCYTES PERCENT AUTO 10 % (4-13); Mean Corpuscular HGB 29.6 pg (26.0-34.0); Mean Corpuscular HGB Conc 32.9 g/dL (31.5-36.5); Mean Corpuscular Volume 90 fL (80-100); Mean Platelet Volume 8.9 fL (9.1-12.4); NEUTROPHILS ABSOLUTE AUTO 15.09 K/mm3 (1.96-9.15); NEUTROPHILS PERCENT AUTO 79 % (41-73); Platelet Count 251 K/mm3 (150-400); RDW Coefficient Variation 15.5 % (11.7-14.2); RDW Standard Deviation 51.7 fL (35.1-46.3); Red Blood Cell Count 4.16 M/mm3 (4.30-5.90); White Blood Cell Count 19.08 K/mm3 (4.00-11.30)
[2022-08-10 02:03] LABS: Albumin, Blood 3.1 g/dL (3.4-5.0); Albumin/Globulin Ratio 0.6 (0.8-1.8); Bilirubin, Total 0.4 mg/dL (0.1-1.0); Bun/Creatinine Ratio 28.9 (12.0-20.0); Calcium, Blood 9.8 mg/dL (8.5-10.1); Creatinine, Blood 1.66 mg/dL (0.60-1.20); Potassium, Blood 4.6 mmol/L (3.5-5.5); Total Protein, Blood 8.1 g/dL (6.4-8.2)
[2022-08-10 05:12] LABS: Source, Urine Foley catheter
[2022-08-10 05:15] LABS: Appearance, Urine Clear (Clear); Bilirubin, Urine Neg (Neg); Blood, Urine 2+ (Neg); Color, Urine Yellow (P-Yellow); Glucose Qualitative, Urine Neg (Neg); Ketones, Urine Neg (Neg); Leukocyte Esterase, Urine 3+ (Neg); Nitrite, Urine Neg (Neg); Protein, Urine 2+ (Neg); Specific Gravity, Urine 1.015 (1.003-1.022); Urobilinogen, Urine NORM (Normal)
[2022-08-10 05:35] LABS: Triple Phosphate Crystals Many /hpf
[2022-08-10 05:38] LABS: Red Blood Cells, Urine 0-2 /hpf (0-2)
[2022-08-10 05:41] LABS: Bacteria Many /hpf; Squamous Epithelial Cells Not Seen /hpf (Few)
--- NOTE | 2022-08-10 05:53 | NUR ---
ASSUMPTION OF CARE PT ARRIVED TO PCU 17 FROM ER, MOVED TO PCU BED VIA SLIDER SHEET. PT ALERT AND ORIENTED TO PERSON, PLACE, AND EVENT. DOES HAVE A HARD TIME WITH RECOLLECTION, UNSURE IF THIS IS HIS BASELINE. PT AFEBRILE. PT IS MOVING ALL EXTREMITIES, FOLLOWING ALL COMMANDS. SKIN IS FRAGILE, PRESSURE ULCER TO COCCYX AND BEGINNING OF ONE TO LUMBAR AREA. PT STATES HE DOES NOT MOVE MUCH AT HOME AND HAS A CAREGIVER THAT HELPS WITH ADLS. PT HAD DRY STOOL IN ATTENDS, NEW ATTENDS PLACED , AND PHOTOS OF COCCYX IN CHART. BP IMPROVING c FLUIDS, SBP >100 AND MAP >65. NSR IN THE 60-70'S ON TELE. PT STATES HE FEELS MUCH BETTER AFTER HAVING NEW KNIGHT CATHETER INSERTED. KNIGHT CATHETER DRAINING ADA, CLOUDY URINE c SEDIMENT. PT HAS NOT UPDATED SPOUSE OF HIS ADMIT BUT REQUESTS WE WAIT TO CONTACT HER UNTIL LATER THIS AM.
[2022-08-10 07:10] LABS: BASOPHILS ABSOLUTE AUTO 0.04 K/mm3 (0.00-0.23); BASOPHILS PERCENT AUTO 0 % (0-2); EOSINOPHILS ABSOLUTE AUTO 0.08 K/mm3 (0.00-0.68); EOSINOPHILS PERCENT AUTO 1 % (0-6); Hematocrit 29.4 % (37.0-53.0); Hemoglobin 9.8 g/dL (13.5-17.5); IMMATURE GRAN ABSOLUTE AUTO 0.06 K/mm3 (0.00-0.10); IMMATURE GRAN PERCENT AUTO 0 % (0-1); LYMPHOCYTES ABSOLUTE AUTO 1.55 K/mm3 (0.84-5.20); LYMPHOCYTES PERCENT AUTO 11 % (21-46); MONOCYTES ABSOLUTE AUTO 1.34 K/mm3 (0.16-1.47); MONOCYTES PERCENT AUTO 9 % (4-13); Mean Corpuscular HGB 30.1 pg (26.0-34.0); Mean Corpuscular HGB Conc 33.3 g/dL (31.5-36.5); Mean Corpuscular Volume 90 fL (80-100); Mean Platelet Volume 8.9 fL (9.1-12.4); NEUTROPHILS ABSOLUTE AUTO 11.52 K/mm3 (1.96-9.15); NEUTROPHILS PERCENT AUTO 79 % (41-73); Platelet Count 196 K/mm3 (150-400); RDW Coefficient Variation 15.6 % (11.7-14.2); RDW Standard Deviation 52.1 fL (35.1-46.3); Red Blood Cell Count 3.26 M/mm3 (4.30-5.90); White Blood Cell Count 14.59 K/mm3 (4.00-11.30)
[2022-08-10 07:34] LABS: Albumin, Blood 2.4 g/dL (3.4-5.0); Albumin/Globulin Ratio 0.6 (0.8-1.8); Bilirubin, Total 0.2 mg/dL (0.1-1.0); Bun/Creatinine Ratio 28.3 (12.0-20.0); Calcium, Blood 8.4 mg/dL (8.5-10.1); Creatinine, Blood 1.73 mg/dL (0.60-1.20); Globulin, Blood 4.1 g/dL (2.2-4.0); Magnesium, Blood 2.4 mg/dL (1.6-2.4); Potassium, Blood 4.9 mmol/L (3.5-5.5); Total Protein, Blood 6.5 g/dL (6.4-8.2)
[2022-08-10] MEDS ORDERED: CLOBETASOL EMOL15 G1 TD (08:51)
[2022-08-10] MEDS ORDERED: DULCOLAX400 MG/51 PO (08:53)
[2022-08-10] MEDS ORDERED: NYSTOP15 GM TOP (08:56)
[2022-08-10] MEDS ORDERED: ZINC OXIDE57 GM TOP (08:59)
[2022-08-10] MEDS ORDERED: DOCU100 PO (09:05)
[2022-08-10] MEDS ORDERED: MULVITA PO (09:07)
--- NOTE | 2022-08-10 12:22 | NUR ---
UPDATE WHEN ROUNDING ON PT THEY WERE FOUND TO HAVE INCREASE IN HEART RATE FROM THE 60'S TO LOW 100'S, NEW DYSPNEA WITH RESPIRATORY RATE OF 20, AND TEMPERATURE OF 100.5. THIS RN NOTIFIED THE PROVIDER OF THE CHANGE IN CONDITION AND NEW ORDERS WERE GIVEN.
--- NOTE | 2022-08-10 16:59 | NUR ---
SHIFT SUMMARY PT HAS BEEN RESTING IN BED, THEY SLEPT FOR A MAJORITY OF THE FIRST HALF OF THE DAY. TEMPERATURE HAS FALLEN AFTER TYLENOL AND COOLING THE ROOM OFF. RESPIRATORY RATE HAS ALSO STABILIZED UNDER 20. PT HAS COMPLAINED OF CHRONIC RIGHT SHOULDER AND UPPER ARM PAIN THAT HAS LESSENED AFTER RECEIVING TYLENOL. PT HAS BEEN ABLE TO SLIGHTLY REPOSITION SELF FOR COMFORT AND THEY HAVE BEEN ASSISTED TO FULLY REPOSITION. THE PT IS ABLE TO ANSWER ORIENTATION QUESTIONS CORRECTLY BUT DOES HAVE OCCASIONAL EPISODES OF FORGETFULNESS THAT ARE REMEDIED WITH VERBAL REORIENTATION.
--- NOTE | 2022-08-11 06:12 | NUR ---
SHIFT SUMMARY PT ALERT, BUT CONFUSED. PT STATES HE "IS STUCK IN A WHEELCHAIR AND WANTED TO GET OUT, ALSO CONFUSED ON THE DATE AND YEAR. PT EASILY REORIENTED AND COOPERATIVE WITH CARE. PT ORIENTED TO SELF. VSS; SBP 110 - 120'S (MAP >65), SR WITH HR IN 80'S, O2 94 - 96% ON RA. PT DENIES SOB, CHEST PAIN OR CHEST PRESSURE. PT HAD TEMP OF 99.5, THEN AFEBRILE THE REST OF SHIFT. PT APPEARS A WEAK AND PALLOR IN COLOR. PT STATES HE FEELS "CRUDDY". REPORTS PAIN IN BILAT SHOULDERS, LOWER EXTREMITIES, AND COCCYX. MEDICATED PER EMAR. PT REPORTS RELIEF OF PAIN WITH MEDICATION AND REPOSITIONING. KNIGHT CATHETER IN PLACE AND DRAINING TO GRAVITY. PT REPORTS PAIN IN PENIAL AREA DUE TO RECENT CHANGE OF KNIGHT. PT RESTING ON AND OFF THROUGHOUT SHIFT. CALL LIGHT IN REACH AND BED IN LOWEST POSITION.
[2022-08-11 09:04] LABS: BASOPHILS ABSOLUTE AUTO 0.06 K/mm3 (0.00-0.23); BASOPHILS PERCENT AUTO 1 % (0-2); EOSINOPHILS ABSOLUTE AUTO 0.09 K/mm3 (0.00-0.68); EOSINOPHILS PERCENT AUTO 1 % (0-6); Hematocrit 28.3 % (37.0-53.0); Hemoglobin 9.2 g/dL (13.5-17.5); IMMATURE GRAN ABSOLUTE AUTO 0.05 K/mm3 (0.00-0.10); IMMATURE GRAN PERCENT AUTO 0 % (0-1); LYMPHOCYTES ABSOLUTE AUTO 1.51 K/mm3 (0.84-5.20); LYMPHOCYTES PERCENT AUTO 13 % (21-46); MONOCYTES ABSOLUTE AUTO 1.28 K/mm3 (0.16-1.47); MONOCYTES PERCENT AUTO 11 % (4-13); Mean Corpuscular HGB 29.5 pg (26.0-34.0); Mean Corpuscular HGB Conc 32.5 g/dL (31.5-36.5); Mean Corpuscular Volume 91 fL (80-100); Mean Platelet Volume 9.2 fL (9.1-12.4); NEUTROPHILS ABSOLUTE AUTO 9.08 K/mm3 (1.96-9.15); NEUTROPHILS PERCENT AUTO 75 % (41-73); Platelet Count 199 K/mm3 (150-400); RDW Coefficient Variation 16.1 % (11.7-14.2); RDW Standard Deviation 53.9 fL (35.1-46.3); Red Blood Cell Count 3.12 M/mm3 (4.30-5.90); White Blood Cell Count 12.07 K/mm3 (4.00-11.30)
[2022-08-11 09:13] LABS: Bun/Creatinine Ratio 25.2 (12.0-20.0); Creatinine, Blood 1.51 mg/dL (0.60-1.20); Potassium, Blood 4.3 mmol/L (3.5-5.5)
--- NOTE | 2022-08-11 17:46 | NUR ---
SHIFT SUMMARY PT HAS BEEN RESTING IN BED THROUGHOUT THE DAY. PHYSICAL THERAPY ASSESSED AND TREATED THE PT. PT GOT UP TO THE BEDSIDE COMMODE BY TWO-PERSON MAXIMUM ASSIST. PT WAS UNSTABLE ON FEET AND DID NOT FOLLOW VERBAL CUES WELL. VITAL SIGNS HAVE REMAINED STABLE WITH A T. MAX. OF 99.1. SPOUSE AND CAREGIVER VISITED PT AND UPDATED THIS RN WITH HEALTH AND MEDICATION HISTORY, CHART WAS UPDATED TO REFLECT CAREGIVER THE PERSON TO NOTIFY.
--- NOTE | 2022-08-12 04:59 | NUR ---
SHIFT SUMMARY A/OX3, FORGETFUL. DENIES PAIN OR SOB. SLEPT T/O THE NIGHT. CHRONIC KNIGHT PATENT AND DRAINING. VSS, NO ACUTE CHANGES AT THIS TIME. BED IN LOWEST POSITION WITH CALL LIGHT IN REACH. WILL CONTINUE TO MONITOR AND REPORT TO ONCOMING RN.
[2022-08-12 05:42] LABS: BASOPHILS ABSOLUTE AUTO 0.03 K/mm3 (0.00-0.23); BASOPHILS PERCENT AUTO 0 % (0-2); EOSINOPHILS ABSOLUTE AUTO 0.17 K/mm3 (0.00-0.68); EOSINOPHILS PERCENT AUTO 2 % (0-6); Hematocrit 26.8 % (37.0-53.0); Hemoglobin 8.8 g/dL (13.5-17.5); IMMATURE GRAN ABSOLUTE AUTO 0.05 K/mm3 (0.00-0.10); IMMATURE GRAN PERCENT AUTO 1 % (0-1); LYMPHOCYTES ABSOLUTE AUTO 1.57 K/mm3 (0.84-5.20); LYMPHOCYTES PERCENT AUTO 17 % (21-46); MONOCYTES ABSOLUTE AUTO 1.04 K/mm3 (0.16-1.47); MONOCYTES PERCENT AUTO 11 % (4-13); Mean Corpuscular HGB 29.4 pg (26.0-34.0); Mean Corpuscular HGB Conc 32.8 g/dL (31.5-36.5); Mean Corpuscular Volume 90 fL (80-100); Mean Platelet Volume 9.3 fL (9.1-12.4); NEUTROPHILS ABSOLUTE AUTO 6.48 K/mm3 (1.96-9.15); NEUTROPHILS PERCENT AUTO 70 % (41-73); Platelet Count 196 K/mm3 (150-400); RDW Coefficient Variation 15.8 % (11.7-14.2); RDW Standard Deviation 52.2 fL (35.1-46.3); Red Blood Cell Count 2.99 M/mm3 (4.30-5.90); White Blood Cell Count 9.34 K/mm3 (4.00-11.30)
[2022-08-12 06:09] LABS: Calcium, Blood 7.7 mg/dL (8.5-10.1); Creatinine, Blood 1.52 mg/dL (0.60-1.20); Potassium, Blood 4.1 mmol/L (3.5-5.5)
--- NOTE | 2022-08-12 17:50 | NUR ---
PT HAS BEEN DOING WELL. PT RESTING COMFORTABLY AT THIS TIME. KNIGHT PATENT AND RUNNING. PT DENIES PAIN AND HAS BEEN COOPERATIVE OF CARE. PT IS A TWO PERSON WITH GAITBELT MAX TO TRANSFER TO BEDSIDE COMMODE. CALL LIGHT IS WITH REACH WILL CONTINUE TO MONITOR.
--- NOTE | 2022-08-13 04:59 | NUR ---
SHIFT SUMMARY A/OX3, FORGETFUL. DENIES PAIN OR SOB. SLEPT T/O THE NIGHT. VSS, NO ACUTE CHANGES AT THIS TIME. BED IN LOWEST POSITION WITH CALL LIGHT IN REACH. WILL CONTINUE TO MONITOR AND REPORT TO ONCOMING RN.
[2022-08-13] MEDS ORDERED: CEFTRIAXON1 GM/50 M1 IV (11:47)
--- NOTE | 2022-08-13 16:38 | NUR ---
PT DISCHARGED AT 1638 TO GO BACK TO [facility]. PT TRANSPORTED VIA WHEELCHAIR THROUGH [facility]. ALL PAPERWORK REVIEWED AND SENT WITH PT, NO DISTRESS NOTED. PT HAS BEEN COOPERATIVE OF CARE ALL DAY. PT ABLE TO MAKE NEEDS KNOWN.
== END 2022-08-13 16:30 | disposition home health service (06) | DRG 698 ==
LOC: ER 00:42 → MEDS 03:57 → PCU 03:57 → MEDS 08-11 18:25
PROVIDERS: Family Medicine; Internal Medicine; Student in an Organized Health Care Education/Training Program; ADMIT Internal Medicine
DX: T83.511A Infection and inflammatory reaction due to indwelling urethral catheter, initial encounter (principal); A41.9 Sepsis, unspecified organism; G93.41 Metabolic encephalopathy; R65.21 Severe sepsis with septic shock; N17.9 Acute kidney failure, unspecified; N39.0 Urinary tract infection, site not specified; N18.30 Chronic kidney disease, stage 3 unspecified; E78.5 Hyperlipidemia, unspecified; I12.9 Hypertensive chronic kidney disease with stage 1 through stage 4 chronic kidney disease, or unspecified chronic kidney disease; N41.9 Inflammatory disease of prostate, unspecified; E11.22 Type 2 diabetes mellitus with diabetic chronic kidney disease; Z95.1 Presence of aortocoronary bypass graft; Z98.890 Other specified postprocedural states; Z87.891 Personal history of nicotine dependence; Z91.013 Allergy to seafood; Z79.899 Other long term (current) drug therapy; Z79.84 Long term (current) use of oral hypoglycemic drugs; Z88.8 Allergy status to other drugs, medicaments and biological substances; Z86.73 Personal history of transient ischemic attack (TIA), and cerebral infarction without residual deficits; Y84.6 Urinary catheterization as the cause of abnormal reaction of the patient, or of later complication, without mention of misadventure at the time of the procedure
CPT/HCPCS: 36415; 51702; 51798; 71045; 74176; 80048; 80053; 81001; 82947; 83605; 83735; 85025; 87040; 87077; 87086; 87186; 96361-59; 96374-59; 96375-59; 97110; 97162; 97530; 99284-25; A9270; J0696; J1644; J1885; J7030

== ENCOUNTER 2022-08-15 02:29 | Day surgery (SDC) | payer OTHER ==
[~2022-08-15 02:29] MED LIST changes: +CEFTRIAXON1 GM/50 M1 IV; +CLOBETASOL EMOL15 G1 TD; +DULCOLAX400 MG/51 PO; +MULVITA PO; +NYSTOP15 GM TOP
== END 2022-08-15 09:45 | disposition home or self-care (01) ==
LOC: ATC 02:29
DX: T83.518A Infection and inflammatory reaction due to other urinary catheter, initial encounter (principal); I12.9 Hypertensive chronic kidney disease with stage 1 through stage 4 chronic kidney disease, or unspecified chronic kidney disease; N18.9 Chronic kidney disease, unspecified; E11.22 Type 2 diabetes mellitus with diabetic chronic kidney disease; Z86.73 Personal history of transient ischemic attack (TIA), and cerebral infarction without residual deficits; Z88.8 Allergy status to other drugs, medicaments and biological substances; Z91.013 Allergy to seafood; Z79.84 Long term (current) use of oral hypoglycemic drugs; Z79.899 Other long term (current) drug therapy
CPT/HCPCS: J0696

== ENCOUNTER 2022-08-16 00:12 | Day surgery (SDC) | payer OTHER | END 2022-08-16 10:20 | disposition home or self-care (01) | LOC: ATC 00:12 | DX: T83.518A Infection and inflammatory reaction due to other urinary catheter, initial encounter (principal); N39.0 Urinary tract infection, site not specified; B96.20 Unspecified Escherichia coli [E. coli] as the cause of diseases classified elsewhere; E11.22 Type 2 diabetes mellitus with diabetic chronic kidney disease; I12.9 Hypertensive chronic kidney disease with stage 1 through stage 4 chronic kidney disease, or unspecified chronic kidney disease; N18.9 Chronic kidney disease, unspecified; Y73.1 Therapeutic (nonsurgical) and rehabilitative gastroenterology and urology devices associated with adverse incidents; Z86.73 Personal history of transient ischemic attack (TIA), and cerebral infarction without residual deficits; Z79.02 Long term (current) use of antithrombotics/antiplatelets; Z79.84 Long term (current) use of oral hypoglycemic drugs; Z95.5 Presence of coronary angioplasty implant and graft | CPT/HCPCS: J0696 ==

== ENCOUNTER 2022-08-17 02:05 | Day surgery (SDC) | payer OTHER | END 2022-08-17 10:20 | disposition home or self-care (01) | LOC: ATC 02:05 | DX: T83.518A Infection and inflammatory reaction due to other urinary catheter, initial encounter (principal); Y73.8 Miscellaneous gastroenterology and urology devices associated with adverse incidents, not elsewhere classified; I12.9 Hypertensive chronic kidney disease with stage 1 through stage 4 chronic kidney disease, or unspecified chronic kidney disease; N18.9 Chronic kidney disease, unspecified; E11.22 Type 2 diabetes mellitus with diabetic chronic kidney disease; Z91.013 Allergy to seafood; Z88.8 Allergy status to other drugs, medicaments and biological substances; Z79.84 Long term (current) use of oral hypoglycemic drugs; Z79.02 Long term (current) use of antithrombotics/antiplatelets; Z79.899 Other long term (current) drug therapy | CPT/HCPCS: J0696 ==

== ENCOUNTER 2022-08-18 02:51 | Day surgery (SDC) | payer OTHER | END 2022-08-18 10:59 | disposition home or self-care (01) | LOC: ATC 02:51 | DX: T83.518A Infection and inflammatory reaction due to other urinary catheter, initial encounter (principal); N39.0 Urinary tract infection, site not specified; B96.20 Unspecified Escherichia coli [E. coli] as the cause of diseases classified elsewhere; E11.22 Type 2 diabetes mellitus with diabetic chronic kidney disease; N18.9 Chronic kidney disease, unspecified; Z86.73 Personal history of transient ischemic attack (TIA), and cerebral infarction without residual deficits; I12.9 Hypertensive chronic kidney disease with stage 1 through stage 4 chronic kidney disease, or unspecified chronic kidney disease; Z91.013 Allergy to seafood; Z88.8 Allergy status to other drugs, medicaments and biological substances; N17.9 Acute kidney failure, unspecified; R65.20 Severe sepsis without septic shock; A41.9 Sepsis, unspecified organism; Z95.5 Presence of coronary angioplasty implant and graft; Z79.02 Long term (current) use of antithrombotics/antiplatelets; Z79.82 Long term (current) use of aspirin | CPT/HCPCS: J0696 ==

== ENCOUNTER 2022-10-14 03:22 | Emergency (ER) | payer OTHER ==
[~2022-10-14] VITALS: Ht 175.3 cm; Wt 83.9 kg
== END 2022-10-14 05:42 | disposition home or self-care (01) ==
LOC: ER 03:22
DX: T83.091A Other mechanical complication of indwelling urethral catheter, initial encounter (principal); Y73.8 Miscellaneous gastroenterology and urology devices associated with adverse incidents, not elsewhere classified; L89.152 Pressure ulcer of sacral region, stage 2; I12.9 Hypertensive chronic kidney disease with stage 1 through stage 4 chronic kidney disease, or unspecified chronic kidney disease; N18.9 Chronic kidney disease, unspecified; E11.22 Type 2 diabetes mellitus with diabetic chronic kidney disease; Z88.8 Allergy status to other drugs, medicaments and biological substances; Z91.013 Allergy to seafood; Z79.899 Other long term (current) drug therapy; Z79.84 Long term (current) use of oral hypoglycemic drugs; Z87.891 Personal history of nicotine dependence
CPT/HCPCS: 51702; 51798

== ENCOUNTER 2022-10-27 06:44 | Emergency (ER) | payer OTHER ==
[~2022-10-27] VITALS: Ht 175.3 cm; Wt 81.7 kg
[2022-10-27 07:55] LABS: BASOPHILS ABSOLUTE AUTO 0.07 K/mm3 (0.00-0.23); BASOPHILS PERCENT AUTO 1 % (0-2); EOSINOPHILS ABSOLUTE AUTO 0.26 K/mm3 (0.00-0.68); EOSINOPHILS PERCENT AUTO 2 % (0-6); Hematocrit 38.5 % (37.0-53.0); Hemoglobin 12.8 g/dL (13.5-17.5); IMMATURE GRAN ABSOLUTE AUTO 0.04 K/mm3 (0.00-0.10); IMMATURE GRAN PERCENT AUTO 0 % (0-1); LYMPHOCYTES ABSOLUTE AUTO 2.88 K/mm3 (0.84-5.20); LYMPHOCYTES PERCENT AUTO 23 % (21-46); MONOCYTES ABSOLUTE AUTO 0.84 K/mm3 (0.16-1.47); MONOCYTES PERCENT AUTO 7 % (4-13); Mean Corpuscular HGB 29.4 pg (26.0-34.0); Mean Corpuscular HGB Conc 33.2 g/dL (31.5-36.5); Mean Corpuscular Volume 89 fL (80-100); Mean Platelet Volume 8.6 fL (9.1-12.4); NEUTROPHILS ABSOLUTE AUTO 8.65 K/mm3 (1.96-9.15); NEUTROPHILS PERCENT AUTO 68 % (41-73); Platelet Count 347 K/mm3 (150-400); RDW Coefficient Variation 14.7 % (11.7-14.2); Red Blood Cell Count 4.35 M/mm3 (4.30-5.90); White Blood Cell Count 12.74 K/mm3 (4.00-11.30)
[2022-10-27 08:16] LABS: Albumin, Blood 3.1 g/dL (3.4-5.0); Albumin/Globulin Ratio 0.6 (0.8-1.8); Bilirubin, Direct 0.1 mg/dL (0.0-0.3); Bilirubin, Indirect 0.3 mg/dL (0.1-0.7); Bilirubin, Total 0.4 mg/dL (0.1-1.0); Bun/Creatinine Ratio 22.1 (12.0-20.0); Calcium, Blood 9.4 mg/dL (8.5-10.1); Creatinine, Blood 1.49 mg/dL (0.60-1.20); Globulin, Blood 4.9 g/dL (2.2-4.0); Magnesium, Blood 2.2 mg/dL (1.6-2.4); Potassium, Blood 4.7 mmol/L (3.5-5.5)
[2022-10-27 09:00] LABS: Influenza A, PCR NEGATIVE (NEGATIVE); Influenza B, PCR NEGATIVE (NEGATIVE); Resp Syncytial Virus, PCR NEGATIVE (NEGATIVE); SARS-Cov-2 (COVID-19) PCR, MMC NEGATIVE (NEGATIVE)
[2022-10-27 11:04] LABS: Source, Urine Foley catheter
[2022-10-27 11:10] LABS: Appearance, Urine Hazy (Clear); Bilirubin, Urine Neg (Neg); Blood, Urine 4+ (Neg); Color, Urine Yellow (P-Yellow); Glucose Qualitative, Urine Neg (Neg); Ketones, Urine 1+ (Neg); Leukocyte Esterase, Urine 3+ (Neg); Nitrite, Urine Neg (Neg); Protein, Urine 2+ (Neg); Urobilinogen, Urine NORM (Normal)
[2022-10-27 12:48] LABS: Bacteria Many /hpf; Squamous Epithelial Cells Not Seen /hpf (Few)
[2022-10-27 12:50] LABS: Mucus Light (0-Heavy)
[2022-10-27] MEDS ORDERED: CEFD300 PO (12:57)
== END 2022-10-27 15:38 | disposition home or self-care (01) ==
LOC: ER 06:44
PROVIDERS: Student in an Organized Health Care Education/Training Program
DX: L89.152 Pressure ulcer of sacral region, stage 2 (principal); L03.312 Cellulitis of back [any part except buttock and flank]; T83.511A Infection and inflammatory reaction due to indwelling urethral catheter, initial encounter; E11.22 Type 2 diabetes mellitus with diabetic chronic kidney disease; I12.9 Hypertensive chronic kidney disease with stage 1 through stage 4 chronic kidney disease, or unspecified chronic kidney disease; N18.9 Chronic kidney disease, unspecified; Y73.8 Miscellaneous gastroenterology and urology devices associated with adverse incidents, not elsewhere classified; Y84.6 Urinary catheterization as the cause of abnormal reaction of the patient, or of later complication, without mention of misadventure at the time of the procedure; Z91.013 Allergy to seafood; Z88.8 Allergy status to other drugs, medicaments and biological substances; Z79.899 Other long term (current) drug therapy; Z79.84 Long term (current) use of oral hypoglycemic drugs; Z86.73 Personal history of transient ischemic attack (TIA), and cerebral infarction without residual deficits; Z95.1 Presence of aortocoronary bypass graft; Z87.891 Personal history of nicotine dependence; Z20.822 Contact with and (suspected) exposure to COVID-19
CPT/HCPCS: 0241U; 36415; 51702; 74177; 80048; 80076; 81001; 83605; 83690; 83735; 85025; 85651; 86140; J0696; J2270; J3370; J7050; J7120; Q9967

== ENCOUNTER 2022-12-08 02:19 | Inpatient (IN) | payer OTHER ==
[~2022-12-08] VITALS: Ht 185.4 cm; Wt 81.7 kg
[~2022-12-08 02:19] MED LIST changes: +CEFD300 PO; +HYDCOR2.5C PR
[2022-12-08 02:46] LABS: BASOPHILS ABSOLUTE AUTO 0.05 K/mm3 (0.00-0.23); BASOPHILS PERCENT AUTO 1 % (0-2); EOSINOPHILS ABSOLUTE AUTO 0.25 K/mm3 (0.00-0.68); EOSINOPHILS PERCENT AUTO 3 % (0-6); Hematocrit 34.9 % (37.0-53.0); Hemoglobin 11.6 g/dL (13.5-17.5); IMMATURE GRAN ABSOLUTE AUTO 0.03 K/mm3 (0.00-0.10); IMMATURE GRAN PERCENT AUTO 0 % (0-1); LYMPHOCYTES ABSOLUTE AUTO 2.21 K/mm3 (0.84-5.20); LYMPHOCYTES PERCENT AUTO 23 % (21-46); MONOCYTES ABSOLUTE AUTO 0.83 K/mm3 (0.16-1.47); MONOCYTES PERCENT AUTO 9 % (4-13); Mean Corpuscular HGB 29.7 pg (26.0-34.0); Mean Corpuscular HGB Conc 33.2 g/dL (31.5-36.5); Mean Corpuscular Volume 89 fL (80-100); NEUTROPHILS ABSOLUTE AUTO 6.16 K/mm3 (1.96-9.15); NEUTROPHILS PERCENT AUTO 65 % (41-73); Platelet Count 240 K/mm3 (150-400); RDW Standard Deviation 52.8 fL (35.1-46.3); Red Blood Cell Count 3.91 M/mm3 (4.30-5.90); White Blood Cell Count 9.53 K/mm3 (4.00-11.30)
[2022-12-08 02:58] LABS: Albumin/Globulin Ratio 0.7 (0.8-1.8); Bilirubin, Total 0.4 mg/dL (0.1-1.0); Calcium, Blood 8.7 mg/dL (8.5-10.1); Creatinine, Blood 1.28 mg/dL (0.60-1.20); Globulin, Blood 4.1 g/dL (2.2-4.0); Potassium, Blood 4.1 mmol/L (3.5-5.5); Total Protein, Blood 7.1 g/dL (6.4-8.2)
[2022-12-08 04:04] LABS: Source, Urine Foley catheter
[2022-12-08 04:10] LABS: Bilirubin, Urine Neg (Neg); Blood, Urine 5+ (Neg); Glucose Qualitative, Urine Neg (Neg); Ketones, Urine 2+ (Neg); Leukocyte Esterase, Urine 3+ (Neg); Nitrite, Urine Neg (Neg); Protein, Urine 3+ (Neg); Specific Gravity, Urine 1.015 (1.003-1.022); Urobilinogen, Urine NORM (Normal)
[2022-12-08 04:20] LABS: Appearance, Urine Hazy (Clear); Color, Urine Yellow (P-Yellow)
[2022-12-08 04:22] LABS: Bacteria Many /hpf; Renal Epithelial Few /hpf (0-Rare); Squamous Epithelial Cells Rare /hpf (Few); White Blood Cells, Urine TNTC /hpf (0-5)
--- NOTE | 2022-12-08 14:49 | NUR ---
SHIFT SUMMARY PT AWAKE DURING SHIFT REPORT, HAVING JUST BEEN RECENTLY ADMITTED. PER REPORT, PT FROM [facility] AND ADMITTED FOR SEPSIS R/T UTI. PT WITH CHRONIC KNIGHT, HX OF CVA X2 AND NOT WALKING RECENTLY. PT REPORTED FALLING IN BTHRM AT HOME. SKIN ASSESSMENT DONE WITH EDWARD HAILE. PT WITH SKIN BREAKDOWN ON COCCYX, PENIS FROM KNIGHT CATH, AND R GREAT TOE; SEE PICTURES ON CHART. BOTTLE CAPPER, BENEDICT WADSWORTH CALLED TO CHK ON PT AND REVIEW HOME MEDICATIONS, WHICH WERE UPDATED ON CHART. PT HAD XLG BM THIS AM; PT CLEANED AND CHANGED WITH ZINC CALAZIME LOTION APPLIED. PT POSTIONED TO KEEP OFF BUTTOCKS THRU OUT THE DAY. PLEASANT AND CO-OP WITH CARE. ABLE TO FEED HIMSELF, BUT DO SO "SLOWLY", PER PT. NO C/O. CALL LT IN REACH.
--- NOTE | 2022-12-09 04:46 | NUR ---
SUMMARY: NO ACUTE EVENTS OVERNIGHT. VSS. KNIGHT IN PLACE. PATIENT AWAKE MOST OF NIGHT. TURNED IN BED WITH PILLOWS. PATIENT CURRENTLY FC BUT WAS ON HOSPICE BEFORE ARRIVAL. PLAN IS TO FOLLOW UP WITH DAUGHTER TODAY AND CLARIFY PLAN OF CARE. IV FLUIDS AND ABX GIVEN PER ORDERS. PATIENT 2X MAX ASSIST WITH MOBILITY IN BED.
[2022-12-09 05:16] LABS: Albumin, Blood 2.3 g/dL (3.4-5.0); Albumin/Globulin Ratio 0.6 (0.8-1.8); Bilirubin, Total 0.3 mg/dL (0.1-1.0); Calcium, Blood 8.1 mg/dL (8.5-10.1); Creatinine, Blood 1.16 mg/dL (0.60-1.20); Globulin, Blood 3.7 g/dL (2.2-4.0)
[2022-12-09 05:27] LABS: BASOPHILS ABSOLUTE AUTO 0.05 K/mm3 (0.00-0.23); BASOPHILS PERCENT AUTO 1 % (0-2); EOSINOPHILS ABSOLUTE AUTO 0.21 K/mm3 (0.00-0.68); EOSINOPHILS PERCENT AUTO 3 % (0-6); Hematocrit 29.6 % (37.0-53.0); Hemoglobin 9.9 g/dL (13.5-17.5); IMMATURE GRAN ABSOLUTE AUTO 0.02 K/mm3 (0.00-0.10); IMMATURE GRAN PERCENT AUTO 0 % (0-1); LYMPHOCYTES ABSOLUTE AUTO 2.14 K/mm3 (0.84-5.20); LYMPHOCYTES PERCENT AUTO 30 % (21-46); MONOCYTES ABSOLUTE AUTO 0.68 K/mm3 (0.16-1.47); MONOCYTES PERCENT AUTO 10 % (4-13); Mean Corpuscular HGB 29.9 pg (26.0-34.0); Mean Corpuscular HGB Conc 33.4 g/dL (31.5-36.5); Mean Corpuscular Volume 89 fL (80-100); Mean Platelet Volume 9.1 fL (9.1-12.4); NEUTROPHILS ABSOLUTE AUTO 3.98 K/mm3 (1.96-9.15); NEUTROPHILS PERCENT AUTO 56 % (41-73); Platelet Count 215 K/mm3 (150-400); RDW Coefficient Variation 15.9 % (11.7-14.2); RDW Standard Deviation 52.4 fL (35.1-46.3); Red Blood Cell Count 3.31 M/mm3 (4.30-5.90); White Blood Cell Count 7.08 K/mm3 (4.00-11.30)
--- NOTE | 2022-12-09 14:05 | NUR ---
Patient ready for discharge, finished IV ABX this morning. Plan to discharge via gurney at 1400. Removed IV from right forearm. Transported arrived & patient left unit at at 1400.
== END 2022-12-09 14:05 | disposition hospice, home (50) | DRG 689 ==
LOC: ER 02:19 → MEDS 05:50
PROVIDERS: Student in an Organized Health Care Education/Training Program; ADMIT Internal Medicine
DX: N39.0 Urinary tract infection, site not specified (principal); G92.8 Other toxic encephalopathy; N18.9 Chronic kidney disease, unspecified; I12.9 Hypertensive chronic kidney disease with stage 1 through stage 4 chronic kidney disease, or unspecified chronic kidney disease; Z51.5 Encounter for palliative care; E78.5 Hyperlipidemia, unspecified; I25.10 Atherosclerotic heart disease of native coronary artery without angina pectoris; E11.22 Type 2 diabetes mellitus with diabetic chronic kidney disease; R33.9 Retention of urine, unspecified; N13.9 Obstructive and reflux uropathy, unspecified; E86.0 Dehydration; B96.5 Pseudomonas (aeruginosa) (mallei) (pseudomallei) as the cause of diseases classified elsewhere; B96.4 Proteus (mirabilis) (morganii) as the cause of diseases classified elsewhere; Z88.0 Allergy status to penicillin; Z88.8 Allergy status to other drugs, medicaments and biological substances; Z91.013 Allergy to seafood; Z79.899 Other long term (current) drug therapy; Z79.811 Long term (current) use of aromatase inhibitors; Z95.1 Presence of aortocoronary bypass graft; Z98.890 Other specified postprocedural states; Z87.891 Personal history of nicotine dependence; Z79.84 Long term (current) use of oral hypoglycemic drugs; Z79.2 Long term (current) use of antibiotics; Z86.73 Personal history of transient ischemic attack (TIA), and cerebral infarction without residual deficits
CPT/HCPCS: 36415; 51702; 71045; 80053; 81001; 82947; 85025; 87077; 87086; 87186; 96365-59; 97162; 97166; 97530; 99285-25; A9270; J0713; J1650; J7030